=== PATIENT | female | born 1935 | race Caucasian/White ===

== ENCOUNTER → 2016-06-24 | Outpatient (CLI) | payer MEDICARE, BC ==
--- NOTE | 2016-06-24 14:38 | MR ---
MR brain and internal auditory canals with and without contrast HISTORY: Acoustic neuroma Multiplanar multisequence and postcontrast images obtained through the brain with small [id number] images obtained through the internal auditory canals. Postcontrast images obtained following 15 cc M ultiHance IV. Correlation to prior exam dated 21 April 2014 There is no restricted diffusion. Cortical atrophy is again noted. There is a partially empty sella. Corpus callosum, cervical medullary junction, internal auditory canals are stable. Focus of low signa l on T2-weighted sequences along the internal auditory canal which shows contrast enhancement followi ng MultiHance administration is again noted and shows a stable appearance. No significant mass effect . Postop changes in the temporal bone on the right are again seen. Periventricular white matter demye lination is again seen. No hemorrhage or hydrocephalus. Probable meningioma along the tendon undersur face is again seen and shows a stable appearance. IMPRESSION: Stable tumors are noted. No acute brain abnormality.
== END ==
LOC: RADMRIMAIN 09:59
PROVIDERS: ATTEND Otolaryngology
DX: D33.3 Benign neoplasm of cranial nerves (principal)
CPT/HCPCS: 70553; A9577

== ENCOUNTER → 2016-07-26 | Outpatient (CLI) | payer MEDICARE, BC ==
--- NOTE | 2016-07-26 15:00 | US ---
EXAMINATION TYPE: US thyroid st tissue head/neck DATE OF EXAM: 07/26/2016 2:45 PM COMPARISON: 08/10/2016 CLINICAL HISTORY: E04.9 Goiter. Follow up exam GLAND SIZE: Right Lobe: 4.0 x 0.9 x 1.5 cm Overall Parenchyma: homogenous Left Lobe: 3.7 x 0.9 x 1.4 cm Overall Parenchyma: homogeneous Isthmus Thickness: 0.3 cm NODULES RIGHT: # of nodules measured on right: 1 1. 0.2 X 0.2 x 0.2 cm hypoechoic cystic nodule at the lower pole with poorly defined margins; prese nt with microcalcifications. This nodule is wider than tall and shows no intranodular vascularity. Prior size: 0.2 x 0.2 x 0.2 cm LEFT: # of nodules measured on left: 2 1. 0.4 X 0.3 x 0.4 cm hypoechoic cystic nodule at the mid pole with well-defined margins; present wi th microcalcifications. This nodule is taller than wide and shows no intranodular vascularity. Prior size: 0.4 x 0.2 x 0.4 cm 2. 0.3 X 0.2 x 0.3 cm hypoechoic cystic nodule at the upper pole with well-defined margins. This no dule is wider than tall and shows no intranodular vascularity. Prior size: 0.4 x 0.3 x 0.2 cm ISTHMUS: # of nodules measured in the isthmus: 0 Bilateral neck scanned, no evidence of lymphadenopathy. IMPRESSION: 1. Stable multinodular goiter with subcentimeter nodules.
== END | disposition home or self-care (01) ==
LOC: RADUSWWP 14:19
PROVIDERS: ATTEND Family Medicine
DX: E04.2 Nontoxic multinodular goiter (principal)
CPT/HCPCS: 76536

== ENCOUNTER → 2017-02-28 | Outpatient (CLI) | payer MEDICARE, BC ==
--- NOTE | 2017-02-28 15:54 | US ---
EXAMINATION TYPE: US thyroid st tissue head/neck DATE OF EXAM: 02/28/2017 COMPARISON: NONE CLINICAL HISTORY: 82-year-old female E04.9 NONTOXIC GOITER. TECHNIQUE: Multiple sonographic images of the thyroid gland are obtained. FINDINGS: GLAND SIZE: Right Lobe: 4.1 x 1.8 x 1.1 cm Overall Parenchyma: homogenous Left Lobe: 3.6 x1.3 x 1.2 cm Overall Parenchyma: homogeneous Isthmus Thickness: 0.3 cm NODULES RIGHT: # of nodules measured on right: 1 1. 0.2 X 0.1 x 0.2 cm colloid cyst at the midpole. Prior size: 0.2 x 0.2 x 0.2 cm LEFT: # of nodules measured on left: 2 1. 0.4 X 0.3 x 0.4 cm cystic nodule at the mid pole with well-defined margins. This nodule is wide r than tall and shows no intranodular vascularity. Prior size: 0.4 x 0.3 x 0.4 cm 2. 0.3 X 0.2 x 0.3 cm cystic nodule at the upper pole with well-defined margins. This nodule is wid er than tall and shows no intranodular vascularity. Prior size: 0.3 x 0.2 x 0.3 cm ISTHMUS: # of nodules measured in the isthmus: 0 Bilateral neck scanned, no evidence of lymphadenopathy. IMPRESSION: Approximately 3 scattered cysts within the thyroid gland. No suspicious nodules seen.
== END | disposition home or self-care (01) ==
LOC: RADUSWWP 13:38
PROVIDERS: ATTEND Family Medicine
DX: E04.1 Nontoxic single thyroid nodule (principal)
CPT/HCPCS: 76536

== ENCOUNTER → 2017-08-21 | Outpatient (CLI) | payer MEDICARE, BC ==
--- NOTE | 2017-08-21 13:52 | MM ---
Reason for exam: additional evaluation requested from prior study. Last mammogram was performed 17 years and 4 months ago. History: Patient is postmenopausal. Family history of breast cancer in mother at age 88. Took hormonal contraceptives beginning at age 59. Physical Findings: Nurse did not find any significant physical abnormalities on exam. MG 3D Diag Mammo W/Cad CHELITA Bilateral CC and MLO view(s) were taken. Prior study comparison: August 18, 2016, mammogram, performed at [facility]. April 12, 2000, bilateral screening mammogram. The breast tissue is heterogeneously dense. This may lower the sensitivity of mammography. Benign calcifications bilaterally. No suspicious abnormality. These results were verbally communicated with the patient and result sheet given to the patient on 08/21/17. ASSESSMENT: Benign, BI-RAD 2 RECOMMENDATION: Routine screening mammogram of both breasts in 1 year.
== END | disposition home or self-care (01) ==
LOC: RADMAMWWP 12:45
PROVIDERS: ATTEND Family Medicine
DX: R92.8 Other abnormal and inconclusive findings on diagnostic imaging of breast (principal)
CPT/HCPCS: 77066; G0279

== ENCOUNTER → 2017-09-25 | Outpatient (CLI) | payer MEDICARE, BC ==
--- NOTE | 2017-09-25 09:16 | US ---
EXAMINATION TYPE: US thyroid st tissue head/neck DATE OF EXAM: 09/25/2017 COMPARISON: 02/28/2017 and 07/26/2016 CLINICAL HISTORY: E04.1 Nontoxic Single Thyroid Nodule. Follow up thyroid nodules GLAND SIZE: Right Lobe: 4.5 x 1.6 x 1.4 cm Overall Parenchyma: homogenous Left Lobe: 4.3 x 1.1 x 1.2 cm Overall Parenchyma: homogeneous Isthmus Thickness: 0.4 cm NODULES RIGHT: # of nodules measured on right: 1 1. 0.2 X 0.3 x 0.3 cm hypoechoic cystic nodule at the lower pole with well-defined margins. This no dule is wider than tall and shows no intranodular vascularity. Prior size: 0.2 x 0.1 x 0.2 cm LEFT: # of nodules measured on left: 2 1. 0.5 X 0.5 x 0.5 cm hypoechoic cystic nodule at the mid pole with well-defined margins. This nodu le is wider than tall and shows no intranodular vascularity. Prior size: 0.4 x 0.3 x 0.4 cm 2. 0.4 X 0.3 x 0.5 cm hypoechoic cystic nodule at the lower pole with well-defined margins. This nod ule is wider than tall and shows no intranodular vascularity. Prior size: 0.3 x 0.2 x 0.3 cm ISTHMUS: # of nodules measured in the isthmus: 0 Bilateral neck scanned, no evidence of lymphadenopathy. IMPRESSION: Multiple subcentimeter thyroid nodules, overall similar to the prior exams of 02/28/2017 and of 07/27/19 17. No new suspicious nodules.
== END | disposition home or self-care (01) ==
LOC: RADUSWWP 08:30
PROVIDERS: ATTEND Family Medicine
DX: E04.2 Nontoxic multinodular goiter (principal)
CPT/HCPCS: 76536

== ENCOUNTER → 2018-04-02 | Outpatient (CLI) | payer MEDICARE, BC ==
[2018-04-03 09:08] VITALS: BMI 25.0
== END | disposition home or self-care (01) ==
LOC: LABWHC1 08:56
PROVIDERS: ATTEND Family Medicine
DX: Z53.9 Procedure and treatment not carried out, unspecified reason (principal)

== ENCOUNTER → 2018-06-05 | Outpatient (CLI) | payer MEDICARE, BC | END | disposition home or self-care (01) | LOC: LABWHC1 10:46 | PROVIDERS: ATTEND Otolaryngology | DX: D33.3 Benign neoplasm of cranial nerves (principal) | CPT/HCPCS: 36415; 82565; 84520 ==

== ENCOUNTER → 2018-06-06 | Outpatient (CLI) | payer MEDICARE, BC ==
--- NOTE | 2018-06-07 10:21 | US ---
EXAMINATION TYPE: US thyroid st tissue head/neck DATE OF EXAM: 06/06/2018 COMPARISON: US CLINICAL HISTORY: E04.9 GOITER. F/U GLAND SIZE: Right Lobe: 3.7 x 1.1 x 1.3 cm Overall Parenchyma: homogenous Left Lobe: 3.5 x 1.2 x 1.1 cm Overall Parenchyma: Homogenous Isthmus Thickness: 0.35 cm NODULES RIGHT: # of nodules measured on right: 1 1. 0.3 X 0.3 x 0.4 cm hypoechoic cystic nodule at the mid pole with well-defined margins; This nodu le is wider than tall and shows intranodular vascularity. Prior size: 0.2 x 0.3 x 0.3 cm LEFT: # of nodules measured on left: 2 1. 0.5 X 0.4 x 0.4 cm hypoechoic cystic nodule at the mid pole with well-defined margins; This nod ule is wider than tall and shows no intranodular vascularity. Prior size: 0.5 x 0.5 x 0.5 cm 2. 0.4 X 0.3 x 0.4 cm hypoechoic cystic nodule at the lower pole with well-defined margins; This no dule is wider than tall and shows no intranodular vascularity. Prior size: 0.4 x 0.3 x 0.5 cm Bilateral neck scanned, no evidence of lymphadenopathy. Stable sub-centimeter nodules bilaterally. IMPRESSION: 1. Stable subcentimeter bilateral thyroid nodules
== END | disposition home or self-care (01) ==
LOC: RADUSWWP 15:36
PROVIDERS: ATTEND Family Medicine
DX: E04.2 Nontoxic multinodular goiter (principal)
CPT/HCPCS: 76536

== ENCOUNTER → 2018-06-06 | Outpatient (CLI) | payer MEDICARE, BC ==
--- NOTE | 2018-06-06 11:21 | MR ---
EXAMINATION TYPE: MR brain and iac wo/w con DATE OF EXAM: 06/06/2018 COMPARISON: 06/24/2016 and 04/21/2014 HISTORY: Acoustic Nueroma, F/U TECHNIQUE: Multiplanar, multisequence images of the brain and brainstem is performed without and with IV contras t, utilizing 6.5 mL intravenous Gadavist . FINDINGS: Diffusion weighted images demonstrate no evidence of a recent infarct or other diffusion ab normality. There is no extra-axial fluid collection or significant white matter signal abnormality. The ventricular system and cisternal spaces are symmetrically prominent size compatible with age-rel ated volume loss. Midline structures demonstrate normal morphology. There is incidental note made of a partially empty sella turcica. The craniocervical junction appears within normal limits. Old lacunar injury is seen at the level of the inferior right posterior lentiform nucleus and within the left lentiform nuclei m ultifocally. Multiple T2/FLAIR hyperintense foci are scattered within the periventricular and subcort ical white matter, overall moderate burden. This is similar and burden to the prior of 2017. The dura l venous sinuses appear patent. Mild mucosal thickening is seen within the ethmoid sinuses. 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 The remaining visualized sinuses are clear and the globes are intact. Extra-axial mass again at the undersurface of the tentorium cerebelli measures approximately 1.2 cm a nd is isointense on T1 and T2 weighted sequences to loera matter with nearly homogeneous enhancement a gain most compatible with a meningioma. There is a 5 mm intracanalicular enhancing mass, minimally increased from the prior of 2017 where thi s measured approximately 3-4 mm. No abnormal enhancement is seen within the left 7th or 8th cranial n erves or at the left cerebellopontine angle. IMPRESSION: 1. Very mild increase in size of the right intracanalicular acoustic schwannoma now measuring 5 mm an d previously measuring 3 to 4 mm in 2017. 2. 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 3. Similar moderate burden nonspecific white matter change, most commonly on the basis of chronic henry roangiopathy and age-related volume loss.
== END | disposition home or self-care (01) ==
LOC: RADMRIMAIN 07:43
PROVIDERS: ATTEND Otolaryngology
DX: D33.3 Benign neoplasm of cranial nerves (principal); I67.9 Cerebrovascular disease, unspecified
CPT/HCPCS: 70553; A9585

== ENCOUNTER → 2018-08-28 | Outpatient (CLI) | payer MEDICARE, BC ==
--- NOTE | 2018-08-29 10:53 | MM ---
Reason for exam: screening (asymptomatic). Last mammogram was performed 1 year ago. History: Patient is postmenopausal. Family history of breast cancer in mother at age 88. Took hormonal contraceptives beginning at age 59. Physical Findings: A clinical breast exam by your physician is recommended on an annual basis and results should be correlated with mammographic findings. MG 3D Screening Mammo W/Cad Bilateral CC and MLO view(s) were taken. Prior study comparison: August 21, 2017, bilateral MG 3d diag mammo w/cad CHELITA. August 18, 2016, mammogram, performed at [facility]. The breast tissue is heterogeneously dense. This may lower the sensitivity of mammography. Stable benign calcifications. There is no discrete abnormality. No significant changes when compared with prior studies. ASSESSMENT: Benign, BI-RAD 2 RECOMMENDATION: Routine screening mammogram of both breasts in 1 year.
== END ==
LOC: RADMAMWWP 09:18
PROVIDERS: ATTEND Family Medicine
DX: Z12.31 Encounter for screening mammogram for malignant neoplasm of breast (principal)
CPT/HCPCS: 77063; 77067

== ENCOUNTER 2018-10-10 07:39 | Day surgery (SDC) | payer MEDICARE, BC ==
[2018-10-05 14:37] VITALS: BMI 24.6
[~2018-10-10 07:39] MED LIST: LACTATED RINGERS 1,000 ML IV SCH; LIDOCAINE 1% 20 ML VIAL (10MG/ML) FOR IV START INTRADERMA PRN
[2018-10-10 07:52] VITALS: RESP 16; TEMP 96.9
[2018-10-10] MEDS ORDERED: PROPOFOL 10 MG/ML 20 ML VIAL IV ONE (08:26)
[2018-10-10] MEDS ORDERED: LIDOCAINE 1% INJ 10MG/ML (20 ML MDV) ONE (08:26)
--- NOTE | 2018-10-10 08:46 | P.PCN ---
Date of Procedure: 10/10/18 Procedure(s) Performed: BRIEF HISTORY: Patient is a 83-year-old pleasant white female, scheduled for an elective colonoscopy as a part of screening for colorectal neoplasia. She does have family history of colon cancer diagnosed in 2 sisters in their early 70s. PROCEDURE PERFORMED: Colonoscopy with snare polypectomy. PREOPERATIVE DIAGNOSIS: Screening for colon cancer/family history of colon cancer. IV sedation per Anesthesia. PROCEDURE: After informed consent was obtained, the patient, was brought into the endoscopy unit. IV sedation was administered by Anesthesia under continuous monitoring. Digital rectal examination was normal. Initially the Olympus CF-160 flexible video colonoscope was then inserted in the rectum, gradually advanced into the cecum without any difficulty. Careful examination was performed as the scope was gradually being withdrawn. Ileocecal valve and the appendiceal orifice were visualized and appeared normal. Prep was excellent. Mucosa of the cecum, ascending colon, appeared normal. In the proximal ascending a history 5 mm and 7 mm in size both of which were removed by snare polypectomy. Rest of the transverse colon, descending colon, sigmoid colon, and rectum appeared normal. Retroflexion was performed in the rectum and no lesions were seen. The patient tolerated the procedure well. IMPRESSION: 5 mm and 7 mm sessile ascending colon polyps status post polypectomy RECOMMENDATIONS: Findings of this examination were discussed with the patient as well as a family. She was advised to follow with the biopsy results. If the biopsy shows adenoma, she can have a repeat colonoscopy in 3-5 years, based on her overall medical condition..
[2018-10-10 09:05] VITALS: BP 145/68; PULSE 55
== END 2018-10-10 09:45 | disposition home or self-care (01) ==
LOC: ORWHC2ENDO 07:39
PROVIDERS: ATTEND Internal Medicine Gastroenterology
DX: Z12.11 Encounter for screening for malignant neoplasm of colon (principal); D12.2 Benign neoplasm of ascending colon; Z80.0 Family history of malignant neoplasm of digestive organs; I10 Essential (primary) hypertension; G47.33 Obstructive sleep apnea (adult) (pediatric); H91.91 Unspecified hearing loss, right ear; K21.9 Gastro-esophageal reflux disease without esophagitis; M43.22 Fusion of spine, cervical region; K59.00 Constipation, unspecified; Z79.82 Long term (current) use of aspirin; Z79.899 Other long term (current) drug therapy; Z88.0 Allergy status to penicillin
CPT/HCPCS: 88305; 45385; J2001; J2704

== ENCOUNTER → 2018-11-07 | Outpatient (CLI) | payer MEDICARE, BC ==
--- NOTE | 2018-11-07 12:23 | CONS ---
CONSULTATION DATE OF SERVICE: 11/07/2018 An 83-year-old lady who has been evaluated in the Sleep Center for obstructive sleep apnea-hypopnea syndrome. HISTORY OF PRESENT ILLNESS/SLEEP-WAKE EVALUATION: Patient had been diagnosed with mild obstructive sleep apnea in March of 2012, was started on treatment with CPAP. Had some problem with CPAP and started to use oral appliances. Then she started to have some issues related to her teeth related to oral appliance, essentially stopped to use appliances. Presently, her sleep schedule from around 11 p.m. until 6 or 7 a.m. Sometimes she has problems with falling asleep, no TV in bedroom, but patients read in bedroom. He sleeps on the side position with her . According to him, she continued to snore quite loudly and she wakes up from sleep up to 5 times with 3 episodes of nocturia. No history of hypnagogic hallucinations, sleep paralysis or cataplexy. During the day, patient may feel sleepiness. [place] Sleepiness Scale is 9. She may take one nap around 3 - 4 pm, usually feels refreshed after nap, sometimes has dreams during naps. PAST MEDICAL HISTORY: Positive for hypertension, acid reflux, irritable bowel syndrome, , acoustic neuroma treated surgically, balance problems, history of iron-deficiency anemia of unknown cause with iron supplement. PAST SURGICAL HISTORY: Partial hysterectomy, neck surgery and low back surgery, surgery right-sided acoustic neuroma in 1998. MEDICATIONS: Lisinopril, omeprazole, polyethylene glycol which is MiraLAX, , hydrocortisone cream, aspirin, multivitamins, calcium and vitamin D supplement. SOCIAL HISTORY: Negative for smoking. Alcohol consumption occasional. FAMILY HISTORY: Heart problems, arthritis. REVIEW OF SYSTEMS: Multiple awakenings from sleep, tiredness and sleepiness during the day. PHYSICAL EXAM: lady without distress. BP 140/73, HR 56, RR 20, height 5, 2, weight 137, body mass index 26.5, temperature 97.3, oxygen saturation at room air 100%. OROPHARYNX: Extremely low position of soft palate. Mallampati 4. No slightly isometric neck 15 inches in circumference. LUNGS Clear to percussion and to auscultation. Good air exchange. No wheezing or rhonchi. HEART S1, S2 regular. No murmurs, gallops, or rubs. ABDOMEN Soft and nontender. Bowel sounds are present. No organomegaly appreciated. EXTREMITIES No clubbing or cyanosis. FLOORING GRADER Awake, alert, and oriented X3. Cranial nerves 2 to 7 intact. There is no fasciculation or atrophy. noted. No focal deficits observed. IMPRESSION: 1. Snoring, multiple awakenings from sleep, extremely low position of soft palate, episodes of sleepiness. History of obstructive sleep apnea-hypopnea syndrome. 2. Hypertension. 3. Acid reflux. 4. Irritable bowel syndrome. 5. History of . 6. History of acoustic neuroma on the right side, treated surgically in 1998, balance problems. 7. Status post low back surgery. 8. Status post neck surgery. 9. Status post partial hysterectomy. 10.History of iron deficiency anemia on unknown cause, improved with iron supplement. PLAN: 1. Polysomnography for evaluation of patient's breathing during sleep. 2. CPAP/BiPAP titration if sleep study confirms obstructive sleep apnea-hypopnea syndrome. 3. Preferable position during sleep on the side. 4. No driving if patient feels any sleepiness. 5. I will see patient for follow up visit to explain results of testing and following plan. Thank you very much for referring this patient for consultation. Sincerely, Kenean Bates MD, PhD, FAASM Diplomat of [place] [employer] [place] [employer] Tube And Manifold Builder of [facility] [place] [id number] / TOYAN: [id number] /
== END | disposition home or self-care (01) ==
LOC: SLEEP 09:58
PROVIDERS: ATTEND Internal Medicine
DX: G47.33 Obstructive sleep apnea (adult) (pediatric) (principal); I10 Essential (primary) hypertension; K21.9 Gastro-esophageal reflux disease without esophagitis; K58.9 Irritable bowel syndrome, unspecified; Z86.79 Personal history of other diseases of the circulatory system; Z86.018 Personal history of other benign neoplasm; Z90.711 Acquired absence of uterus with remaining cervical stump; Z98.890 Other specified postprocedural states; Z79.82 Long term (current) use of aspirin; Z79.899 Other long term (current) drug therapy
CPT/HCPCS: 99211

== ENCOUNTER → 2019-01-23 | Outpatient (CLI) | payer MEDICARE, BC ==
--- NOTE | 2019-01-23 12:02 | SFUN ---
SLEEP CENTER FOLLOW UP NOTE DATE OF SERVICE: 01/23/2019 An 84-year-old lady who has been followed in the Sleep Center for treatment for obstructive sleep apnea-hypopnea syndrome. Recently, patient had polysomnogram which showed obstructive sleep apnea with apnea- hypopnea index 5.8. I discussed results of the sleep study with patient in detail. Subsequently, she was started on treatment with CPAP and presently able to use CPAP equipment without any problems related to the pressure, mask fitting or humidification. According to her , she sleeps better with the machine. Not any additional sounds and quality of sleep is better. I checked her CPAP unit. CPAP pressure is 5 cm of water. Usage is 27/30 nights and 25/30 nights for more than 4 hours with average usage 6.7 hours per night. Leak is 4 L/minute, which is normal. Apnea-hypopnea index 1.0 for the last month, which is normal wound. Advance Sleepiness Scale today is 11. CURRENT MEDICATIONS: Lisinopril, omeprazole, aspirin, multivitamins, calcium supplement with vitamin D, fish oil, and vitamin D3. PHYSICAL EXAM: Patient in no distress. BP 147/65, HR 58, RR 18, weight 136.4, temperature 97.8, oxygen saturation from 100%. OROPHARYNX: Low position of soft palate, Mallampati 4. Neck Supple, no JVD. Thyroid is not palpable. LUNGS Clear to percussion and to auscultation. Good air exchange. No wheezing or rhonchi. HEART S1, S2 regular. No murmurs, gallops, or rubs. ABDOMEN Soft and nontender. Bowel sounds are present. No organomegaly appreciated. EXTREMITIES No clubbing or cyanosis. INVENTORY SPECIALIST MANAGER Awake, alert, and oriented X3. Cranial nerves 2 to 7 intact. There is no fasciculation or atrophy. noted. No focal deficits observed. IMPRESSION: 1. Obstructive sleep apnea-hypopnea syndrome in mild range. Patient demonstrated good compliance with treatment benefitting from treatment. 2. Hypertension. 3. Acid reflux. 4. Irritable bowel syndrome. 5. History of acoustic neuroma on the right side, treated surgically in 1998, history of balance problems. 6. Status post low back surgery. 7. Status post neck surgery. 8. Status post partial hysterectomy. 9. History of iron-deficiency anemia of unknown cause, improved with iron supplement. PLAN: 1. Patient will continue to use CPAP equipment every night for the whole night. 2. Sleep hygiene with regular time bed for 7-1/2 hours. 3. No driving if feeling sleepiness. 4. I will maintain all necessary prescriptions for CPAP supplies, including nasal pillow mask and heated tube filters. 5. Followup appointment in 1 year or earlier if patient has any problems. Thank you very much for allowing me to participate in the management of your patient. Sincerely, Keenan Bates MD, PhD, FAASM Diplomat of [employer] Credit Card Associate of [facility] [place] MMODL / IJN: [id number] /
== END | disposition home or self-care (01) ==
LOC: SLEEP 10:49
PROVIDERS: ATTEND Internal Medicine
DX: G47.33 Obstructive sleep apnea (adult) (pediatric) (principal); I10 Essential (primary) hypertension; K21.9 Gastro-esophageal reflux disease without esophagitis; K58.9 Irritable bowel syndrome, unspecified; Z86.018 Personal history of other benign neoplasm; Z86.2 Personal history of diseases of the blood and blood-forming organs and certain disorders involving the immune mechanism; Z99.89 Dependence on other enabling machines and devices; Z90.710 Acquired absence of both cervix and uterus; Z98.890 Other specified postprocedural states; Z79.82 Long term (current) use of aspirin; Z79.899 Other long term (current) drug therapy

== ENCOUNTER → 2019-03-05 | Outpatient (CLI) | payer MEDICARE, BC ==
--- NOTE | 2019-03-05 09:41 | US ---
EXAMINATION TYPE: US thyroid st tissue head/neck DATE OF EXAM: 03/05/2019 COMPARISON: US 06/06/18 CLINICAL HISTORY: E04.9 Thyroid nodule. GLAND SIZE: Right Lobe: 3.0 x 1.1 x 1.0 cm Overall Parenchyma: homogenous Left Lobe: 3.7 x 1.3 x 1.1 cm Overall Parenchyma: homogeneous Isthmus Thickness: 0.3 cm NODULES RIGHT: # of nodules measured on right: 1 1. 0.5 X 0.4 x 0.3 cm hypoechoic cystic nodule at the mid/lower pole with well-defined margins; . This nodule is wider than tall and shows no intranodular vascularity. Prior size: 0.3 x 0.3 x 0.4 cm LEFT: # of nodules measured on left: 3 1. 0.5 X 0.4 x 0.4 cm hypoechoic cystic nodule at the mid pole with well-defined margins; present w ith microcalcifications. This nodule is wider than tall and shows no intranodular vascularity. Prior size: 0.5 x 0.4 x 0.4 cm 2. 0.5 X 0.4 x 0.2 cm hypoechoic cystic nodule at the lower pole with well-defined margins; . This nodule is wider than tall and shows no intranodular vascularity. Prior size: 0.4 x 0.3 x 0.4 cm 3. 0.8 X 0.5 x 0.5 cm echogenic solid nodule at the mid pole with poorly defined margins; . This no dule is wider than tall and shows intranodular vascularity. ? within thyroid vs medial to thyroid gla nd. Prior size: Not previously seen. ISTHMUS: # of nodules measured in the isthmus: 0 IMPRESSION: No nodule greater than 1 cm identified. There is an 8mm nodule appears new and is difficult to determ ine if this is medial to the left lobe of the thyroid or within the medial margin of the thyroid. It is too small to characterize. Recommend 6 month follow-up. Remaining nodules demonstrate no significa nt interval change.
== END | disposition home or self-care (01) ==
LOC: RADUSWWP 08:53
PROVIDERS: ATTEND Family Medicine
DX: E04.9 Nontoxic goiter, unspecified (principal)
CPT/HCPCS: 76536

== ENCOUNTER → 2019-10-04 | Outpatient (CLI) | payer MEDICARE ==
--- NOTE | 2019-10-04 07:56 | US ---
EXAMINATION TYPE: US thyroid st tissue head/neck DATE OF EXAM: 10/04/2019 COMPARISON: 03/05/2019 CLINICAL HISTORY: 84-year-old female E04.1 Nontoxic thyroid nodule. Thyroid nodules TECHNIQUE: Multiple sonographic images of the thyroid gland are obtained. FINDINGS: GLAND SIZE: Right Lobe: 3.6 x 1.4 x 1.5 cm Overall Parenchyma: homogenous Left Lobe: 3.8 x 1.2 x 1.2 cm Overall Parenchyma: homogeneous Isthmus Thickness: 0.3 cm NODULES RIGHT: # of nodules measured on right: 1 1. 0.4 X 0.3 x 0.4 cm hypoechoic nodule at the mid/lower pole with well-defined margins. This nodul e is wider than tall and shows no intranodular vascularity. 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 Prior size: 0.5 x 0.4 x 0.3 cm LEFT: # of nodules measured on left: 2 1. 0.5 X 0.6 x 0.4 cm cystic nodule at the mid pole with well-defined margins. Echogenic mural base d nodule. Prior size: 0.5 x 0.4 x 0.4 cm 2. 0.5 X 0.3 x 0.4 cm cyst at the medial lower pole with well-defined margins. Prior size: 0.4 x 0.3 x 0.4 cm ISTHMUS: # of nodules measured in the isthmus: 0 Bilateral neck scanned, no evidence of lymphadenopathy. 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
== END | disposition home or self-care (01) ==
LOC: RADUSWWP 07:12
PROVIDERS: ATTEND Family Medicine
DX: E04.2 Nontoxic multinodular goiter (principal)
CPT/HCPCS: 76536

== ENCOUNTER → 2019-10-10 | Outpatient (CLI) | payer MEDICARE, BC ==
--- NOTE | 2019-10-10 17:33 | SFUN ---
SLEEP CENTER FOLLOW UP NOTE DATE OF SERVICE: 10/10/2019 This patient is an 84-year-old lady who has been followed in Sleep Center for treatment of obstructive sleep apnea-hypopnea syndrome. The patient successfully continues to use her CPAP equipment every night for the whole night. No snoring with the machine. [place] Sleepiness Scale is borderline at 10. I checked her CPAP unit. CPAP pressure is 6 cm of water. Usage is 28/30 nights for more than 4 hours, with average usage 5.8 hours per night. Leak is only 6 L/minute, which is normal. Apnea-hypopnea index is absolutely perfect; only 0.6. MEDICATIONS: Lisinopril, omeprazole, MiraLAX, baby aspirin, multivitamins, fish oil. PHYSICAL EXAMINATION: GENERAL: A pleasant patient in no distress. VITAL SIGNS: BP 126/67, HR 60, RR 16, height 5 feet 2 inches, weight 135, body mass index 24.6, temperature 97.6, oxygen saturation at room air 98%. HEENT: PERRLA, EOMI. Evaluation of oropharynx showed tongue protrudes midline. Low position of soft palate; Mallampati IV. NECK: Supple. No JVD. Thyroid is not palpable. LUNGS: Clear to percussion and to auscultation. Good air exchange. No wheezing or rhonchi. HEART: S1, S2 regular. No murmurs, gallops or rubs. ABDOMEN: Soft and nontender. Bowel sounds are present. No organomegaly. EXTREMITIES: No clubbing or cyanosis. EDITOR MANAGING DIRECTOR: Awake, alert, and oriented X3. Cranial nerves 2 to 7 intact. There is no fasciculation or atrophy. noted. No focal deficits observed. IMPRESSION: 1. Obstructive sleep apnea-hypopnea syndrome. Patient demonstrated great compliance with treatment, benefitting from treatment. 2. Hypertension. 3. Acid reflux. 4. History of irritable bowel syndrome. 5. 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 History of balance problems. 6. Status post low back surgery. 7. Status post neck surgery. 8. Status post partial hysterectomy. PLAN: 1. Patient will continue to use CPAP equipment every night for the whole night. 2. Sleep hygiene with regular time in bed for at least 7-1/2 to 8 hours. 3. No driving if feeling any sleepiness. 4. I will maintain all necessary prescriptions for CPAP supplies, including mask, tube, filters. Thank you very much for allowing me to participate in the management of your patient. Sincerely, Keenan Bates MD, PhD, FAASM Diplomat of [place] [employer] [place] [employer] Multilith Operator of [facility] [place] [id number] / TOYAN: [id number] /
== END | disposition home or self-care (01) ==
LOC: SLEEP 11:04
PROVIDERS: ATTEND Internal Medicine
DX: G47.33 Obstructive sleep apnea (adult) (pediatric) (principal); I10 Essential (primary) hypertension; K21.9 Gastro-esophageal reflux disease without esophagitis; Z87.19 Personal history of other diseases of the digestive system; Z86.018 Personal history of other benign neoplasm; Z98.1 Arthrodesis status; Z90.711 Acquired absence of uterus with remaining cervical stump; Z79.82 Long term (current) use of aspirin; Z79.899 Other long term (current) drug therapy

== ENCOUNTER → 2019-11-21 | Outpatient (CLI) | payer MEDICARE ==
--- NOTE | 2019-11-22 14:01 | MM ---
Reason for exam: screening (asymptomatic). Last mammogram was performed 1 year and 3 months ago. History: Patient is postmenopausal. Family history of breast cancer in mother at age 88. Took hormonal contraceptives beginning at age 59. Physical Findings: A clinical breast exam by your physician is recommended on an annual basis and results should be correlated with mammographic findings. MG 3D Screening Mammo W/Cad Bilateral CC and MLO view(s) were taken. Prior study comparison: August 28, 2018, bilateral MG 3d screening mammo w/cad. August 21, 2017, bilateral MG 3d diag mammo w/cad CHELITA. The breast tissue is heterogeneously dense. This may lower the sensitivity of mammography. Focal asymmetry outer left CC 5.6cm from nipple. This finding is changed when compared with previous exams. ASSESSMENT: Incomplete: need additional imaging evaluation, BI-RAD 0 RECOMMENDATION: Special view mammogram of the left breast. If lesion persists on supplemental views, image directed ultrasound is recommended. [facility] will attempt to contact patient to return for supplemental views and ultrasound if indicated.
== END | disposition home or self-care (01) ==
LOC: RADMAMWWP 08:49
PROVIDERS: ATTEND Family Medicine
DX: Z12.31 Encounter for screening mammogram for malignant neoplasm of breast (principal)
CPT/HCPCS: 77063; 77067

== ENCOUNTER → 2019-11-27 | Outpatient (CLI) | payer MEDICARE ==
--- NOTE | 2019-12-03 11:12 | MM ---
Reason for exam: additional evaluation requested from abnormal screening. Last mammogram was performed less than 1 month ago. History: Patient is postmenopausal. Family history of breast cancer in mother at age 88. Took estrogen beginning at age 59. Physical Findings: Nurse did not find any significant physical abnormalities on exam. MG 3D Work Up W/Cad LT Spot compression CC and LM view(s) were taken of the left breast. Prior study comparison: November 21, 2019, bilateral MG 3d screening mammo w/cad. August 28, 2018, bilateral MG 3d screening mammo w/cad. There is no discrete abnormality including area of concern left outer CC view. These results were verbally communicated with the patient and result sheet given to the patient on 11/27/19. ASSESSMENT: Probably benign, BI-RAD 3 RECOMMENDATION: Follow-up diagnostic mammogram of the left breast in 6 months.
== END | disposition home or self-care (01) ==
LOC: RADMAMWWP 08:16
PROVIDERS: ATTEND Family Medicine
DX: R92.8 Other abnormal and inconclusive findings on diagnostic imaging of breast (principal)
CPT/HCPCS: 77065; G0279; 77061

== ENCOUNTER → 2020-02-04 | Outpatient (CLI) | payer MEDICARE | END | disposition home or self-care (01) | LOC: LABWHC1 12:35 | PROVIDERS: ATTEND Family Medicine | DX: R53.83 Other fatigue (principal) | CPT/HCPCS: U0003; C9803 ==

== ENCOUNTER → 2020-04-30 | Outpatient (CLI) | payer MEDICARE, BC ==
--- NOTE | 2020-04-30 17:15 | SFUN ---
SLEEP CENTER FOLLOW UP NOTE DATE OF SERVICE: 04/30/2020 This is an 85-year-old lady who has been followed in Sleep Center for treatment of obstructive sleep apnea-hypopnea syndrome. Patient continues to use her CPAP equipment every night for the whole night. Sometimes her head gear goes off during the night, although she likes her nasal pillow part. She is using a Brevida mask. [place] Sleepiness Scale today is 10. I checked her CPAP unit, CPAP pressure of 6 cm of water. Usage is 27/30 nights for more than 4 hour and 26/30 nights for more than 4 hours with average usage of 6.7 hours per night which is good compliance. Leak is 8 L/minute which is borderline. Apnea-hypopnea index 0.6, which is totally perfect. MEDICATIONS: Omeprazole 10 mg once a day, lisinopril 10 mg once a day. Aspirin 81 mg once a day, calcium supplement, fish oil supplement. PHYSICAL EXAMINATION: GENERAL: A pleasant patient without any distress. VITAL SIGNS: BP 125/75 , HR 62 , RR 16, height 5' 2 1/2 inches, weight 138.6, BMI 24.8, temperature 98.1, oxygen saturation at room air 100%. HEENT: PERRLA, EOMI: Evaluation of oropharynx showed tongue protrudes midline. Extremely low position of soft palate. Mallampati 4. NECK: Supple, no JVD. Thyroid is not palpable. LUNGS: Clear to percussion and to auscultation. Good air exchange. No wheezing or rhonchi. HEART: S1, S2 regular. No murmurs, gallops, or rubs. ABDOMEN: Soft and nontender. Bowel sounds are present. No organomegaly appreciated. EXTREMITIES: No clubbing or cyanosis. FURNACE CLEANER: Awake, alert, and oriented X3. Cranial nerves 2 to 7 intact. There is no fasciculation or atrophy. noted. No focal deficits observed. IMPRESSION: 1. Obstructive sleep apnea-hypopnea syndrome. Patient demonstrated great compliance with treatment benefitting from treatment. 2. Hypertension. 3. Acid reflux. 4. History of irritable bowel syndrome. 5. 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 6. History of balance problems. 7. Status post low back surgery. 8. Status post neck surgery. 9. Status post partial hysterectomy. PLAN: PLAN 1. Patient will continue to use PAP equipment every night for the whole night. 2. Sleep hygiene with regular time in bed for at least 7-1/2 to 8 hours. 3. Precautions related to driving. No driving if feeling sleepiness. 4. I will maintain all necessary prescription for PAP supplies including mask, tube, filters. 5. Watching weight. 6. No driving if feeling sleepiness. 7. Follow-up visit in 6 months or earlier if patient has any problems. I discussed with the patient the different types of the nasal pillow masks. My recommendation is to try Witt FX because the head gear on that mask is more stable on the head. Thank you very much for allowing me to participate in the management of your patient. Sincerely, Keenan Bates MD, PhD, FAASM Diplomat of [place] [employer] [place] [employer] Biology Manager of [facility] [place] MMODL / TOYAN: [id number] /
== END | disposition home or self-care (01) ==
LOC: SLEEP 10:46
PROVIDERS: ATTEND Internal Medicine
DX: G47.33 Obstructive sleep apnea (adult) (pediatric) (principal); I10 Essential (primary) hypertension; K21.9 Gastro-esophageal reflux disease without esophagitis; Z98.890 Other specified postprocedural states; Z99.89 Dependence on other enabling machines and devices; Z90.712 Acquired absence of cervix with remaining uterus

== ENCOUNTER → 2020-06-05 | Outpatient (CLI) | payer BC, MEDICARE ==
--- NOTE | 2020-06-09 13:48 | MM ---
Reason for exam: follow-up at short interval from prior study. Last mammogram was performed 6 months ago. History: Patient is postmenopausal. Family history of breast cancer in mother at age 88. Took estrogen beginning at age 59. Physical Findings: Nurse did not find any significant physical abnormalities on exam. MG 3D Diag Mammo W/Cad LT CC and MLO view(s) were taken of the left breast. Prior study comparison: November 27, 2019, left breast MG 3d work up w/cad LT. November 21, 2019, bilateral MG 3d screening mammo w/cad. 6mm nodular density upper outer left breast 6cm from nipple. These results were verbally communicated with the patient and result sheet given to the patient on 06/05/20. ASSESSMENT: Incomplete: need additional imaging evaluation, BI-RAD 0 RECOMMENDATION: Ultrasound of the left breast.
--- NOTE | 2020-06-09 13:49 | USB ---
Reason for exam: additional evaluation requested from abnormal screening. History: Patient is postmenopausal. Family history of breast cancer in mother at age 88. Took estrogen beginning at age 59. US Breast Limited LT Left limited breast ultrasound including focal area of concern, retroareolar and axilla demonstrates no cystic or solid lesion seen. These results were verbally communicated with the patient and result sheet given to the patient on 06/05/20. ASSESSMENT: Probably benign, BI-RAD 3 RECOMMENDATION: Follow-up diagnostic mammogram of both breasts in 6 months.
== END | disposition home or self-care (01) ==
LOC: RADMAMWWP 14:58
PROVIDERS: ATTEND Family Medicine
DX: R92.8 Other abnormal and inconclusive findings on diagnostic imaging of breast (principal)
CPT/HCPCS: 77065; 76642; G0279; 77061

== ENCOUNTER → 2020-06-09 | Outpatient (CLI) | payer MEDICARE ==
--- NOTE | 2020-06-09 10:56 | MR ---
EXAMINATION TYPE: MR brain and iac wo/w con DATE OF EXAM: 06/09/2020 COMPARISON: 06/06/2018 HISTORY: S/P Acoustic neuroma 1999, Rt side hearing loss TECHNIQUE: Multiplanar, multisequence images of the brain and brainstem is performed without and with IV contras t, utilizing 6.5 mL intravenous Gadavist . FINDINGS: Diffusion weighted images demonstrate no evidence of a recent infarct or other diffusion ab normality. There is no extra-axial fluid collection or significant white matter signal abnormality. The ventricular system and cisternal spaces are normal in size and appearance. The brain volume is age appropriate. Midline structures demonstrate normal morphology. The craniocervical junction appears within normal limits. Partially empty sella turcica noted. Changes of chronic sinusitis. Moderate generalized degenerative change of the greater central component. Diffuse and focal areas ar e seen of abnormal signal scattered throughout the white matter bilaterally. Abnormal signal involving the basal ganglia suggestive of remote lacunar infarctions. No midline shif t or mass effect. Extra-axial mass again at the undersurface of the tentorium cerebelli measures approximately 1.2 x 1. 5 x 2.9 cm and is isointense on T1 and T2 weighted sequences to loera matter with nearly homogeneous enhancement again most compatible with a meningioma. Retrospectively stable in size. There is a 5 mm intracanalicular enhancing mass, stable from prior exam. No abnormal enhancement is s een within the left 7th or 8th cranial nerves or at the left cerebellopontine angle. IMPRESSION: 1. 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 2. 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 3. Degenerative and nonspecific white matter changes most typical remote ischemia. There is a greater central component and confluent periventricular abnormal signal which could represent transependymal edema. Correlate for normal pressure hydrocephalus.
== END | disposition home or self-care (01) ==
LOC: RADMRIMAIN 08:56
PROVIDERS: ATTEND Otolaryngology
DX: R90.89 Other abnormal findings on diagnostic imaging of central nervous system (principal); D33.3 Benign neoplasm of cranial nerves; G31.9 Degenerative disease of nervous system, unspecified; R90.82 White matter disease, unspecified; I67.82 Cerebral ischemia
CPT/HCPCS: 70553; A9585

== ENCOUNTER → 2020-09-14 | Outpatient (CLI) | payer MEDICARE ==
--- NOTE | 2020-09-14 14:58 | US ---
EXAMINATION TYPE: US thyroid st tissue head/neck DATE OF EXAM: 09/14/2020 COMPARISON: US 612 [id number] CLINICAL HISTORY: E04.9 nontoxic goiter. Thyroid nodules GLAND SIZE: Right Lobe: 4.1 x 1.2 x 1.3 cm Overall Parenchyma: homogenous Left Lobe: 3.9 x 1.2 x 1.2 cm Overall Parenchyma: homogeneous Isthmus Thickness: 0.2 cm NODULES RIGHT: # of nodules measured on right: 2 1. 0.4 X 0.3 x 0.5 cm, lower lateral, cystic or almost completely cystic, anechoic nodule, which is wider than tall, with smooth margins, without echogenic foci. Prior size: 0.4 x 0.3 x 0.4 cm 2. 0.3 X 0.2 x 0.3 cm, upper medial, cystic or almost completely cystic, anechoic nodule, which is wider than tall, with smooth margins, without echogenic foci. Prior size: no previous LEFT: # of nodules measured on left: 2 1. 0.6 X 0.6 x 0.4 cm, mid lateral, cystic or almost completely cystic, anechoic nodule, which is t aller than wide, with smooth margins, without echogenic foci. Prior size: 0.5 x 0.6 x 0.4 cm 2. 0.4 X 0.2 x 0.4 cm, lower medial, cystic or almost completely cystic, anechoic nodule, which is wider than tall, with smooth margins, without echogenic foci. Prior size: 0.5 x 0.3 x 0.4 cm ISTHMUS: # of nodules measured in the isthmus: 0 Bilateral neck scanned, no evidence of lymphadenopathy. IMPRESSION: 1. There is one new colloid cyst in the right lobe which is 3 mm. Multiple bilateral thyroid cysts ar e otherwise relatively stable suggestive of colloid cysts.
== END | disposition home or self-care (01) ==
LOC: RADUSWWP 08:10
PROVIDERS: ATTEND Family Medicine
DX: E04.2 Nontoxic multinodular goiter (principal)
CPT/HCPCS: 76536

== ENCOUNTER → 2020-11-18 | Outpatient (CLI) | payer MEDICARE ==
--- NOTE | 2020-11-18 11:21 | SFUN ---
SLEEP CENTER FOLLOW UP NOTE DATE OF SERVICE: 11/18/2020 85-year-old lady has been followed in Sleep Center for treatment of obstructive sleep apnea-hypopnea syndrome. Patient continued to use her CPAP equipment every night for the whole night. Received all her CPAP supplies in time. [place] Sleepiness Scale today is 8. I checked CPAP unit. Pressure is 6 cm of water. Usage is 30/30 nights, 28/30 nights more than 4 hours, average 6.6 hours per night. Leak is only 6 L/minute. Apnea- hypopnea index 0.9, which is perfect. MEDICATIONS: Omeprazole 10 mg once a day. Lisinopril 10 mg once a day. Aspirin 81 mg once a day, hydrocortisone cream, metronidazole cream and for rosacea. PHYSICAL EXAMINATION: GENERAL: Patient in no distress. BP 120/66, HR 65, RR 14, height 5 feet 10 inches, weight 134.4 pounds, BMI 24.2, temperature 97.1. Oxygen saturation on room air 96%. Oropharynx: Extremely low position of soft palate. Mallampati 4. NECK: Supple, no JVD. Thyroid is not palpable. LUNGS: Clear to percussion and to auscultation. Good air exchange. No wheezing or rhonchi. HEART: S1, S2 regular. No murmurs, gallops, or rubs. ABDOMEN: Soft and nontender. Bowel sounds are present. No organomegaly appreciated. EXTREMITIES: No clubbing or cyanosis. CONSULTING SERVICES MANAGER: Awake, alert, and oriented X3. Cranial nerves 2 to 7 intact. There is no fasciculation or atrophy. noted. No focal deficits observed. IMPRESSION: 1. Obstructive sleep apnea-hypopnea syndrome. Patient demonstrated practically 100% compliance with treatment benefitting from treatment. 2. Hypertension. 3. Acid reflux. 4. History of irritable old bowel syndrome. 5. History of acoustic neuroma on the right site, status post surgical treatment. 6. History of balance problems. 7. Status post low back surgery. 8. Status post neck surgery. 9. Status post partial hysterectomy. PLAN: 1. I paid attention of the patient to be sure that she changed her air filter on a regular basis, the air filter has been checked. 2. Patient will continue to use PAP equipment every night for the whole night. 3. Sleep hygiene with regular time in bed for at least 7-1/2 to 8 hours. 4. Precautions related to driving. No driving if feeling sleepiness. 5. I will maintain all necessary prescription for PAP supplies including mask, tube, filters. 6. Watching weight. 7. Follow-up visit in 6 months or earlier if patient has any problems. I spent with patient and documentation 30 minutes. Thank you very much for allowing me to participate in management of your patient Sincerely, Keenan Bates MD, PhD, FAASM Diplomat of [place] [employer] Sleep Medicine Board of [place] [employer] of [employer] Machine Stone Polisher Apprentice of [facility] [place] MMODL / IJN: [id number] /
== END ==
LOC: SLEEP 10:14
PROVIDERS: ATTEND Internal Medicine
DX: G47.33 Obstructive sleep apnea (adult) (pediatric) (principal); I10 Essential (primary) hypertension; K21.9 Gastro-esophageal reflux disease without esophagitis; Z87.19 Personal history of other diseases of the digestive system; Z86.018 Personal history of other benign neoplasm; Z86.69 Personal history of other diseases of the nervous system and sense organs; Z98.890 Other specified postprocedural states; Z90.711 Acquired absence of uterus with remaining cervical stump; Z79.899 Other long term (current) drug therapy; Z88.1 Allergy status to other antibiotic agents

== ENCOUNTER → 2020-12-07 | Outpatient (CLI) | payer MEDICARE ==
--- NOTE | 2020-12-07 14:13 | MM ---
Reason for exam: follow-up at short interval from prior study. Last mammogram was performed 6 months ago. History: Patient is postmenopausal. Family history of breast cancer in mother at age 88. Took estrogen beginning at age 59. Physical Findings: Nurse did not find any significant physical abnormalities on exam. MG 3D Diag Mammo W/Cad CHELITA Bilateral CC and MLO view(s) were taken. Prior study comparison: June 05, 2020, left breast MG 3d diag mammo w/cad LT. November 27, 2019, left breast MG 3d work up w/cad LT. August 28, 2018, bilateral MG 3d screening mammo w/cad. August 21, 2017, bilateral MG 3d diag mammo w/cad CHELITA. There are scattered fibroglandular densities. No significant new findings when compared with previous films. These results were verbally communicated with the patient and result sheet given to the patient on 12/07/20. ASSESSMENT: Benign, BI-RAD 2 RECOMMENDATION: Routine screening mammogram of both breasts in 1 year.
== END | disposition home or self-care (01) ==
LOC: RADMAMWWP 12:55
PROVIDERS: ATTEND Family Medicine
DX: N64.89 Other specified disorders of breast (principal); Z78.0 Asymptomatic menopausal state; Z80.3 Family history of malignant neoplasm of breast
CPT/HCPCS: 77066; G0279; 77062

== ENCOUNTER → 2021-04-13 | Outpatient (CLI) | payer MEDICARE ==
--- NOTE | 2021-04-13 15:22 | US ---
EXAMINATION TYPE: US thyroid st tissue head/neck DATE OF EXAM: 04/13/2021 COMPARISON: 09/14/2020 CLINICAL HISTORY: E04.9 Nontoxic thyroid goiter. GLAND SIZE: Right Lobe: 3.8x1.2x1.6 cm Overall Parenchyma: homogenous Left Lobe: 4.1x1.2x1.2 cm Overall Parenchyma: homogeneous Isthmus Thickness: 0.3 cm NODULES RIGHT: # of nodules measured on right: 2 1. 0.2 X 0.2 x 0.1 cm, mid mid, cystic or almost completely cystic, anechoic nodule, which is wider than tall, with smooth margins, Colloid echogenic foci. Prior size: 0.3 x 0.3 x 0.2 cm 2. 0.5 X 0.3 x 0.3 cm, lower mid, cystic or almost completely cystic, anechoic nodule, which is wid er than tall, with smooth margins, Colloid echogenic foci. Prior size: 0.4 x 0.5 x 0.3 cm LEFT: # of nodules measured on left: 3 1. 0.6 X 0.5 x 0.5 cm, mid mid, cystic or almost completely cystic, anechoic nodule, which is wider than tall, with smooth margins, Colloid echogenic foci. Prior size: 0.6 x 0.4 x 0.6 cm 2. 0.4 X 0.5 x 0.3 cm, lower medial, cystic or almost completely cystic, anechoic nodule, which is wider than tall, with smooth margins, Colloid echogenic foci. Prior size: 0.4 x 0.4 x 0.3 cm 3. 0.5 X 0.5 x 0.3 cm, lower medial, cystic or almost completely cystic, anechoic nodule, which is wider than tall, with smooth margins, Colloid echogenic foci. Prior size: None ISTHMUS: # of nodules measured in the isthmus: 0 Bilateral neck scanned, no evidence of lymphadenopathy. IMPRESSION: Findings are similar to prior exam. 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
== END | disposition home or self-care (01) ==
LOC: RADUSWWP 14:00
PROVIDERS: ATTEND Family Medicine
DX: E04.9 Nontoxic goiter, unspecified (principal)
CPT/HCPCS: 76536

== ENCOUNTER → 2021-12-08 | Outpatient (CLI) | payer MEDICARE ==
--- NOTE | 2021-12-09 19:11 | MM ---
Reason for Exam: Screening (asymptomatic). Last screening mammogram was performed 12 month(s) ago. Patient History: Menarche at age 13. First Full-Term at age 23. Hysterectomy at age 59. Postmenopausal. Estrogen, from age 59 until age 77. Mother had breast cancer, age 88. Risk Values: Frieda 5 year model risk: 2.9%. NCI Lifetime model risk: 3.3%. Prior Study Comparison: 11/27/2019 Left Diagnostic Mammogram, [facility]. 06/05/2020 Left Diagnostic Mammogram, [facility]. 12/07/2020 Bilateral Diagnostic Mammogram, [facility]. Tissue Density: There are scattered fibroglandular densities. Findings: Analyzed By CAD. Benign vascular calcifications on the right. No significant change from prior exams. Overall Assessment: Benign, BI-RAD 2 Management: Screening Mammogram of both breasts in 1 year. 1. Patient should continue monthly self breast exams. 2. A clinical breast exam by your physician is recommended on an annual basis. 3. This exam should not preclude additional follow-up of suspicious palpable abnormalities. Electronically signed and approved by: Bree Dahl M.D. Radiologist
== END | disposition home or self-care (01) ==
LOC: RADMAMWWP 14:43
PROVIDERS: ATTEND Family Medicine
DX: Z12.31 Encounter for screening mammogram for malignant neoplasm of breast (principal); Z78.0 Asymptomatic menopausal state; Z80.3 Family history of malignant neoplasm of breast
CPT/HCPCS: 77063; 77067

== ENCOUNTER → 2021-12-22 | Outpatient (CLI) | payer MEDICARE ==
--- NOTE | 2021-12-22 10:52 | P.PN ---
Subjective DATE: [] FOLLOW UP VISIT. Patient with obstructive sleep apnea hypopnea syndrome return to sleep center for follow-up visit. Information from previous visit have been reviewed. Patient is using PAP equipment every night for the whole night, getting PAP supplies in time. The patient referred that some nights her mask may go off in the middle of the night. Sometimes in the middle of the night she'll suddenly feel that the pressure is not enough was difficult to breathe. [place] sleepiness scale is 12. I checked PAP unit. PAP unit pressure 6 cm H2O. Usage is 98 % for more then 4 hours, average 7.3 hours per night. Leak is 10 l/m, which is in acceptable range. Apnea Hypopnea Index is 0.8, which is normal. MEDICATIONS:1. Omeprazole 10 mg once a day 2. Losartan 50 mg once a day 3. Aspirin 81 mg once a day 4. Fluticasone nasal spray During physical exam: No chest discomfort, no shortness of breath, no dizziness. GENERAL: A pleasant patient without any distress. VITAL SIGNS: BP 172/77, HR 57, RR 16 , weight 138.8, temperature 96.8, oxygen saturation at room air 99 % . HEENT: PERRLA, EOMI.low position of soft palate, Mallapati 4 . NECK: Supple. No JVD. LUNGS: Clear to percussion and to auscultation. Good air exchange. No wheezing or rhonchi. HEART: S1, S2 regular. ABDOMEN: Soft and nontender.[] EXTREMITIES: No clubbing or cyanosis. PROFESSIONAL DEVELOPMENT INSTRUCTOR: Awake, alert, and oriented x3. No focal deficit. Impressions: 1. Obstructive sleep apnea-hypopnea syndrome. Patient demonstrated great compliance with treatment, benefiting from treatment. 2. Hypertension. 3. 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 4. Acid reflux. 5. History of irritable bowel syndrome. 6. History of balance problems. 7. Status post low back surgery. 8. Status post neck surgery. 9. Status post partial hysterectomy. Plan: 1. Continue using PAP equipment every night for the whole night. I changed regimen of CPAP unit to Auto with the level of pressure 5-8 cm of water. 2. To change air filter at least 1-2 times per month. 3. PAP unit should stay lower then position of the head. 4. Advised patient to remove all remaining water from humidifier canister daily and make it dry after each usage. Refill canister with fresh distilled water before each usage. 5. Sleep hygiene with regular time in bed for at least 8 hours. 6. Precautions related to driving. No driving if feel any sleepiness. 7. I will maintain prescription for PAP supplies including mask, tube, filters. 8. Follow up visit in 6 months or earlier if patient has any problems. 9. Watching weight. 10. Low sodium diet. Thank you very much for allowing me to participate in the management of your patient. Keenan Bates MD, PhD, FAASM. Diplomat of [place] [employer], Sleep Medicine Board by [place] Board [employer] Medicine Gum Machine Operator of [facility] [place]
== END ==
LOC: SLEEP 10:03
PROVIDERS: ATTEND Internal Medicine
DX: G47.33 Obstructive sleep apnea (adult) (pediatric) (principal); I10 Essential (primary) hypertension; K21.9 Gastro-esophageal reflux disease without esophagitis; Z86.018 Personal history of other benign neoplasm; Z87.19 Personal history of other diseases of the digestive system; Z99.89 Dependence on other enabling machines and devices; Z90.710 Acquired absence of both cervix and uterus; Z98.890 Other specified postprocedural states; Z88.1 Allergy status to other antibiotic agents
CPT/HCPCS: 99212

== ENCOUNTER → 2022-05-03 | Outpatient (CLI) | payer MEDICARE ==
--- NOTE | 2022-05-03 11:14 | US ---
EXAMINATION TYPE: US thyroid st tissue head/neck DATE OF EXAM: 05/03/2022 COMPARISON: 04/13/2021 CLINICAL HISTORY: 87-year-old female E04.9 NONTOXIC GOITER, UNSPECIFIED. The thyroid nodules TECHNIQUE: Multiple sonographic images of the thyroid gland are obtained. FINDINGS: GLAND SIZE: Right Lobe: 3.4 x 1.6 x 1.3 cm Overall Parenchyma: homogenous Left Lobe: 3.7 x 1.6 x 1.2 cm Overall Parenchyma: homogeneous Isthmus Thickness: cm NODULES RIGHT: # of nodules measured on right: 1 1. .4 X .3 x .4 cm, lower , mixed cystic and solid, hypoechoic nodule, which is wider than tall, wi th smooth margins, without echogenic foci. Likely a tiny benign colloid cyst. Prior size: .3 x .3 x .5 cm LEFT: # of nodules measured on left: 2 1. .6 X .6 x .5 cm, lower , benign colloid cyst. Prior size: .6 x .5 x .5 cm 2. .4 X .2 x .4 cm, lower , tiny benign colloid cyst. Prior size: .4 x .3 x .4 cm ISTHMUS: # of nodules measured in the isthmus: .3 Bilateral neck scanned, no evidence of lymphadenopathy. IMPRESSION: A few small benign colloid cysts measuring up to 6 mm remain unchanged. No suspicious solid nodule is identified.
== END | disposition home or self-care (01) ==
LOC: RADUSWWP 08:57
PROVIDERS: ATTEND Family Medicine
DX: E04.2 Nontoxic multinodular goiter (principal)
CPT/HCPCS: 76536

== ENCOUNTER → 2022-08-04 | Outpatient (CLI) | payer MEDICARE ==
--- NOTE | 2022-08-04 12:58 | CT ---
EXAMINATION TYPE: CT brain wo con DATE OF EXAM: 08/04/2022 COMPARISON: MRI dated 01/31/2022 HISTORY: Chronic headaches Stat hold and call CT DLP: [address] of the brain was performed. The ventricles, basal cisterns and sulci overlying the cerebral convexities demonstrate mild to moder ate enlargement. There is no evidence for intracranial hemorrhage or sulcal effacement. There is decreased attenuation about the periventricular white matter and deep white matter of both c erebral hemispheres, compatible with chronic small vessel ischemia. Differential diagnosis does inclu de demyelination. No mass effects are seen.No midline shift. Calcified meningioma along the midline tentorium cerebelli measuring 1.4 x 1.2 cm. Osseous calvarium is intact. Right occipital craniotomy changes noted. If symptoms persist consider MRI. IMPRESSION: 1. Age related atrophic and chronic small vessel ischemic change without acute intracranial process s een at this time.
== END | disposition home or self-care (01) ==
LOC: RADCTMAIN 12:26
PROVIDERS: ATTEND Family Medicine
DX: G31.1 Senile degeneration of brain, not elsewhere classified (principal); I67.82 Cerebral ischemia; G89.29 Other chronic pain
CPT/HCPCS: 70450

== ENCOUNTER → 2022-10-26 | Outpatient (CLI) | payer MEDICARE ==
--- NOTE | 2022-10-26 12:33 | P.PN ---
Subjective DATE: 10/26/2022 FOLLOW UP VISIT. Patient with obstructive sleep apnea hypopnea syndrome return to sleep center for follow-up visit. Information from previous visit have been reviewed. Patient is using PAP equipment every night for the whole night, getting PAP supplies in time. The patient does not have significant problems with the mask, PAP unit and humidification. [place] sleepiness scale is slightly increased to 11. I checked information from PAP unit. PAP unit pressure 5-8, average 7.9 cm H2O. Usage is 93 % for more then 4 hours, average 7.5 hours per night. Leak is 11.8 l/m, which is in acceptable range. Apnea Hypopnea Index is 1.3, which is normal. MEDICATIONS:1. Omeprazole 10 mg once a day 2. Losartan 50 mg once a day 3. Aspirin 81 mg once a day 4. Cetirizine 5. [] 6. [] 7. [] 8. [] During physical exam: GENERAL: A pleasant patient without any distress. VITAL SIGNS: BP 142/79, HR 64, RR 16, weight 135.6, temperature 98.1, oxygen saturation at room air 99 % . HEENT: PERRLA, EOMI.low position of soft palate, Mallapati 4 . NECK: Supple. No JVD. LUNGS: Clear to percussion and to auscultation. Good air exchange. No wheezing or rhonchi. HEART: S1, S2 regular. ABDOMEN: Soft and nontender.[] EXTREMITIES: No clubbing or cyanosis. FERRYBOAT OPERATOR HELPER: Awake, alert, and oriented x3. No focal deficit. Impressions: 1. Obstructive sleep apnea-hypopnea syndrome. Patient demonstrated great compliance with treatment, benefiting from treatment. 2. Hypertension. 3. Acid reflux. 4. History of irritable bowel syndrome. 5. 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 6. History of balance problems. 7. Status post total low back surgery. 8. Status post neck surgery. I teach patient how to adjust level of humidity in CPAP unit. Plan: 1. Continue using PAP equipment every night for the whole night. 2. To change air filter at least 1-2 times per month. 3. PAP unit should stay lower then position of the head. 4. Advised patient to remove all remaining water from humidifier canister daily and make it dry after each usage. Refill canister with fresh distilled water before each usage. 5. Sleep hygiene with regular time in bed for at least 8 hours. 6. Precautions related to driving. No driving if feel any sleepiness. 7. I will maintain prescription for PAP supplies including mask, tube, filters. 8. Watching weight. 9.Follow up visit in 6 months or earlier if patient has any problems. Thank you very much for allowing me to participate in the management of your patient. Keenan Bates MD, PhD, FAASM. Diplomat of [place] Board of Sleep Medicine, Sleep Medicine Board by [place] Board of Internal Medicine Novelties Sales Representative of [facility] [place]
== END ==
LOC: 3 N SLEEP 11:42
PROVIDERS: ATTEND Internal Medicine
DX: G47.33 Obstructive sleep apnea (adult) (pediatric) (principal); I10 Essential (primary) hypertension; K21.9 Gastro-esophageal reflux disease without esophagitis; K58.9 Irritable bowel syndrome, unspecified; Z79.899 Other long term (current) drug therapy; Z86.018 Personal history of other benign neoplasm; Z98.890 Other specified postprocedural states; Z99.89 Dependence on other enabling machines and devices; Z88.0 Allergy status to penicillin; Z88.1 Allergy status to other antibiotic agents
CPT/HCPCS: 99212

== ENCOUNTER → 2022-12-13 | Outpatient (CLI) | payer MEDICARE ==
--- NOTE | 2022-12-14 15:44 | MM ---
Reason for Exam: Screening (asymptomatic). Last screening mammogram was performed 12 month(s) ago. Patient History: Menarche at age 13. First Full-Term at age 23. Hysterectomy at age 59. Postmenopausal. Estrogen, from age 59 until age 77. Mother had breast cancer, age 88. Risk Values: Frieda 5 year model risk: 2.7%. NCI Lifetime model risk: 2.7%. Prior Study Comparison: 08/21/2017 Bilateral Diagnostic Mammogram, [facility]. 08/28/2018 Bilateral Screening Mammogram, [facility]. 11/21/2019 Bilateral Screening Mammogram, [facility]. 11/27/2019 Left Diagnostic Mammogram, [facility]. 06/05/2020 Left Diagnostic Mammogram, [facility]. 12/07/2020 Bilateral Diagnostic Mammogram, [facility]. 12/08/2021 Bilateral MG 3D screening mammo w/cad, [facility]. Tissue Density: There are scattered fibroglandular densities. Findings: Analyzed By CAD. Abdomen appears symmetrical and stable. Benign-appearing calcifications are scattered bilaterally. No significant interval changes are evident. No suspicious groups of microcalcifications, spiculated or lobular masses, architectural distortion or other secondary signs of malignancy are mammographically apparent. Overall Assessment: Benign, BI-RAD 2 Management: Screening Mammogram of both breasts in 1 year. A negative mammogram report should not preclude additional follow up of suspicious palpable abnormalities. Patient should continue monthly self breast exam. A clinical breast exam by your physician is recommended on an annual basis and results should be correlated with mammographic findings. Electronically signed and approved by: Eliel Grigsby D.O. Radiologis
== END | disposition home or self-care (01) ==
LOC: RADMAMWWP 07:41
PROVIDERS: ATTEND Family Medicine
DX: Z12.31 Encounter for screening mammogram for malignant neoplasm of breast (principal); Z78.0 Asymptomatic menopausal state; Z80.3 Family history of malignant neoplasm of breast
CPT/HCPCS: 77063; 77067

== ENCOUNTER → 2023-04-13 | Outpatient (CLI) | payer MEDICARE ==
--- NOTE | 2023-04-13 19:57 | US ---
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 Tug Captain notes: Bilateral neck scanned, no evidence of lymphadenopathy. IMPRESSION: Numerous bilateral benign colloid cysts redemonstrated measuring up to 6 mm.
== END | disposition home or self-care (01) ==
LOC: RADUSWWP 08:13
PROVIDERS: ATTEND Family Medicine
DX: E04.1 Nontoxic single thyroid nodule (principal)
CPT/HCPCS: 76536

== ENCOUNTER → 2023-04-26 | Outpatient (CLI) | payer MEDICARE ==
--- NOTE | 2023-04-26 11:21 | P.PN ---
Subjective DATE: 04/26/2023 FOLLOW UP VISIT. Patient with obstructive sleep apnea hypopnea syndrome return to sleep center for follow-up visit. Information from previous visit have been reviewed. Patient is using PAP equipment every night for the whole night, getting PAP supplies in time. The patient does not have significant problems with the mask, PAP unit and humidification. [place] sleepiness scale is 9. I checked information from PAP unit. PAP unit pressure 5-8, average 7.8 cm H2O. Usage is 100 % for more then 4 hours, average 6.7 hours per night. Leak is 14 l/m, which is in acceptable range. Apnea Hypopnea Index is 0.7, which is normal. MEDICATIONS:1. Losartan 50 mg once a day 2. Omeprazole 3. Restasis eyedrops 4. Hydrocortisone cream During physical exam: GENERAL: A pleasant patient without any distress. VITAL SIGNS: BP 154/74, HR 68, RR 16 , weight 135, temperature 97.8, oxygen saturation at room air 100 % . HEENT: PERRLA, EOMI.low position of soft palate, Mallapati 4 . NECK: Supple. No JVD. LUNGS: Clear to percussion and to auscultation. Good air exchange. No wheezing or rhonchi. HEART: S1, S2 regular. ABDOMEN: Soft and nontender.[] EXTREMITIES: No clubbing or cyanosis. ARBOREAL SCIENTIST: Awake, alert, and oriented x3. No focal deficit. Impressions: 1. Obstructive sleep apnea-hypopnea syndrome. Patient demonstrated great compliance with treatment, benefiting from treatment. 2. Hypertension, patient did not take her medication today. 3. Acid reflux. 4. History of irritable bowel syndrome. 5. Status post a recent fall, and physical therapy. 6. 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 7. History of balance problems. 8. Status post neck surgery. 9. Status post low back surgery. Plan: 1. Continue using PAP equipment every night for the whole night. 2. To change air filter at least 1-2 times per month. 3. PAP unit should stay lower then position of the head. 4. Advised patient to remove all remaining water from humidifier canister daily and make it dry after each usage. Refill canister with fresh distilled water before each usage. 5. Sleep hygiene with regular time in bed for at least 8 hours. 6. Precautions related to driving. No driving if feel any sleepiness. 7. I will maintain prescription for PAP supplies including mask, tube, filters. 8. Follow up visit in 6 months or earlier if patient has any problems. 9. Watching weight. Thank you very much for allowing me to participate in the management of your patient. Keenan Bates MD, PhD, FAASM. Diplomat of [place] Board [employer] Sleep Medicine, Sleep Medicine Board by [place] [employer] Medicine Size Mixer of [facility] [place]
== END ==
LOC: 3 N SLEEP 10:45
PROVIDERS: ATTEND Internal Medicine
DX: G47.33 Obstructive sleep apnea (adult) (pediatric) (principal); I10 Essential (primary) hypertension; K21.9 Gastro-esophageal reflux disease without esophagitis; K58.9 Irritable bowel syndrome, unspecified; Z79.899 Other long term (current) drug therapy; Z86.018 Personal history of other benign neoplasm; Z98.890 Other specified postprocedural states; Z99.89 Dependence on other enabling machines and devices; Z91.81 History of falling; Z88.0 Allergy status to penicillin; Z79.82 Long term (current) use of aspirin
CPT/HCPCS: 99212

== ENCOUNTER 2023-05-29 13:04 | Emergency (ER) | payer MEDICARE ==
[2023-05-29 13:12] VITALS: TEMP 98.2
--- NOTE | 2023-05-29 13:36 | ED ---
General Adult HPI - General Chief complaint: Chest Pain Stated complaint: Chest Pain Time Seen by Provider: 05/29/23 13:07 Source: patient, RN notes reviewed, old records reviewed Mode of arrival: ambulatory Limitations: no limitations - History of Present Illness Initial comments: 88-year-old female presents from the hyperbaric chamber for evaluation of chest discomfort. Patient states that during her treatment she had some chest pressure. Patient is currently deaf and history is obtained through her and through written questions. Symptoms are completely resolved at this time. There is no associated dyspnea. No vomiting. No prior history of CAD. Patient is undergoing hyperbaric treatment for hearing loss. - Related Data Home Medications Medication Instructions Recorded Confirmed Aspirin 81 mg PO DAILY 09/24/13 10/10/18 Lisinopril 10 mg PO QAM 09/24/13 10/10/18 Omeprazole 10 mg PO BID 09/24/13 10/10/18 Polyethylene Glycol 3350 527 gm PO DAILY 09/24/13 10/10/18 metroNIDAZOLE [Metronidazole] 1 applicate TOPICAL DAILY 09/24/13 10/10/18 Acetaminophen [Tylenol Arthritis] 650 mg PO DIRECTED PRN 10/05/18 10/10/18 Cetirizine HCl [Zyrtec] 10 mg PO DAILY PRN 10/05/18 10/10/18 Fish Oil/Dha/Epa [Fish Oil 1,200 1 each PO DAILY 10/05/18 10/10/18 mg Fish Oil] Hydrocortisone Cream 1 applic TOPICAL HS 10/05/18 10/10/18 [Hydrocortisone 2.5% Cream] Multivitamins, Thera [Multivitamin 1 tab PO DAILY 10/05/18 10/10/18 (formulary)] Allergies Allergy/AdvReac Type Severity Reaction Status Date / Time amoxicillin [From Augmentin] Allergy Nausea Verified 05/29/23 13:08 clavulanic acid Allergy Nausea Verified 05/29/23 13:08 [From Augmentin] Review of Systems ROS Statement: Those systems with pertinent positive or pertinent negative responses have been documented in the HPI. ROS Other: All systems not noted in ROS Statement are negative. Past Medical History Past Medical History: GERD/Reflux, Hypertension, Sleep Apnea/CPAP/BIPAP Additional Past Medical History / Comment(s): using device for sleep apnea, constipation, rosacea, deaf rt ear History of Any Multi-Drug Resistant Organisms: None Reported Past Surgical History: Back Surgery, Ear Surgery, Hysterectomy Additional Past Surgical History / Comment(s): cervical fusion, lower back surgery for sciatic nerve, cheli cataracts, rt ear acustic neuroma Past Anesthesia/Blood Transfusion Reactions: Motion Sickness Past Psychological History: No Psychological Hx Reported Smoking Status: Never smoker Past Alcohol Use History: Occasional Past Drug Use History: None Reported - Past Family History Mother Family Medical History: Cancer General Exam Limitations: no limitations General appearance: alert, in no apparent distress Head exam: Present: atraumatic, normocephalic Eye exam: Present: normal appearance, PERRL ENT exam: Present: normal exam Neck exam: Present: normal inspection. Absent: tenderness, meningismus Respiratory exam: Present: normal lung sounds bilaterally. Absent: respiratory distress Cardiovascular Exam: Present: regular rate, normal rhythm GI/Abdominal exam: Present: soft. Absent: distended, tenderness, guarding Extremities exam: Present: normal inspection, normal capillary refill Neurological exam: Present: alert, oriented X3, CN II-XII intact. Absent: motor sensory deficit Psychiatric exam: Present: normal affect, normal mood Skin exam: Present: warm, dry, intact. Absent: cyanosis, diaphoretic Course Vital Signs 05/29/23 13:06 Temperature 98.2 F Pulse Rate 58 L Respiratory 20 Rate Blood Pressure 140/71 O2 Sat by Pulse 99 Oximetry Medical Decision Making - Medical Decision Making Was pt. sent in by a medical professional or institution (DONNA Granado, IUSS MASTER ANALYST, urgent care, hospital, or jail...) When possible be specific @ -No Did you speak to anyone other than the patient for history (EMS, parent, family, police, friend...)? What history was obtained from this source @ -Patient's Did you review nursing and triage notes (agree or disagree)? Why? @ -I reviewed and agree with nursing and triage notes Were old charts reviewed (outside hosp., previous admission, EMS record, old EKG, old radiological studies, urgent care reports/EKG's, jail records)? Report findings @ -No old charts were reviewed Differential Diagnosis (chest pain, altered mental status, abdominal pain women, abdominal pain men, vaginal bleeding, weakness, fever, dyspnea, syncope, h eadache, dizziness, GI bleed, back pain, seizure, CVA, palpatations, mental health, musculoskeletal)? @Differential Chest Pain: Stable Angina, Unstable Angina, STEMI, NSTEMI Aortic Dissection, Pneumothorax, Musculoskeletal, Esophageal Spasm GERD, Cholecystitis, Pancreatitis, Zoster, this is not meant to be an all-inclusive list. EKG interpreted by me (3pts min.). @ -EKG: Sinus bradycardia rate of 52, ND interval 173, QRS duration 89, QTc [address] segment elevation. X-rays interpreted by me (1pt min.). @ -[Chest x-ray negative for acute cardiopulmonary findings CT interpreted by me (1pt min.). @ -None done U/S interpreted by me (1pt. min.). @ -None done What testing was considered but not performed or refused? (CT, X-rays, U/S, labs)? Why? @ -None What meds were considered but not given or refused? Why? @ -None Did you discuss the management of the patient with other professionals (professionals i.e. , PA, IUSS MASTER ANALYST, lab, RT, psych nurse, social group worker, reroller hand, teacher, aeronautical engineering officer, therapeutic case manager)? Give summary @ -No Was smoking cessation discussed for >3mins.? @ -No Was critical care preformed (if so, how long)? @ -No Were there social determinants of health that impacted care today? How? (Homelessness, low income, unemployed, alcoholism, drug addiction, transportation, low edu. Level, literacy, decrease access to med. care, intermediate, rehab)? @ -No Was there de-escalation of care discussed even if they declined (Discuss DNR or withdrawal of care, Hospice)? DNR status @ -No What co-morbidities impacted this encounter? (DM, HTN, Smoking, COPD, CAD, Cancer, CVA, ARF, Chemo, Hep., AIDS, mental health diagnosis, sleep apnea, morbid obesity)? @ -None Was patient admitted / discharged? Hospital course, mention meds given and route, prescriptions, significant lab abnormalities, going to OR and other pertinent info. @ -88-year-old female presenting with an episode of chest discomfort while undergoing hyperbaric treatment. Symptoms resolved at the time my evaluation. Patient is well-appearing she is in sinus rhythm without definitive signs of ischemia on EKG. Chest x-ray is clear normal no pneumothorax, no focal pneumonia or acute findings. She has normal CBC, normal CMP, negative troponin. Patient stable for discharge with outpatient primary care follow-up. Undiagnosed new problem with uncertain prognosis? @ -No Drug Therapy requiring intensive monitoring for toxicity (Heparin, Nitro, Insulin, Cardizem)? @ -No Were any procedures done? @ -No Diagnosis/symptom? @Chest pain Acute, or Chronic, or Acute on Chronic? @ -[Acute Uncomplicated (without systemic symptoms) or Complicated (systemic symptoms)? @ -Complicated Side effects of treatment? @ -No Exacerbation, Progression, or Severe Exacerbation? @ -No Poses a threat to life or bodily function? How? (Chest pain, USA, SC, pneumonia, PE, COPD, DKA, ARF, appy, cholecystitis, CVA, Diverticulitis, Homicidal, Suicidal, threat to staff... and all critical care pts) @ -Low risk at this time - Lab Data Result diagrams: 05/29/23 13:46 05/29/23 13:46 Lab Results 05/29/23 05/29/23 05/29/23 Range/Units 13:46 13:46 13:46 WBC 6.1 (3.8-10.6) k/uL RBC 4.30 (3.80-5.40) m/uL Hgb 13.5 (11.4-16.0) gm/dL Hct 38.6 (34.0-46.0) % MCV 89.8 (80.0-100.0) fL MCH 31.4 (25.0-35.0) pg MCHC 35.0 (31.0-37.0) g/dL RDW 13.7 (11.5-15.5) % Plt Count 254 (150-450) k/uL MPV 6.6 Neutrophils % 77 % Lymphocytes % 9 % Monocytes % 5 % Eosinophils % 8 % Basophils % 1 % Neutrophils # 4.7 (1.3-7.7) k/uL Lymphocytes # 0.5 L (1.0-4.8) k/uL Monocytes # 0.3 (0-1.0) k/uL Eosinophils # 0.5 (0-0.7) k/uL Basophils # 0.0 (0-0.2) k/uL PT 10.1 (10.0-12.5) sec INR 0.9 (<1.2) APTT 22.4 (22.0-30.0) sec Sodium 130 L (137-145) mmol/L Potassium 4.1 (3.5-5.1) mmol/L Chloride 100 (98-107) mmol/L Carbon Dioxide 24 (22-30) mmol/L Anion Gap 6 mmol/L BUN 17 (7-17) mg/dL Creatinine 0.64 (0.52-1.04) mg/dL Est GFR (CKD-EPI)AfAm >90 (>60 ml/min/1.73 sqM) Est GFR (CKD-EPI)NonAf 81 (>60 ml/min/1.73 sqM) Glucose 99 (74-99) mg/dL Calcium 9.3 (8.4-10.2) mg/dL Magnesium 2.0 (1.6-2.3) mg/dL Total Bilirubin 0.4 (0.2-1.3) mg/dL AST 21 (14-36) U/L ALT 21 (4-34) U/L Alkaline Phosphatase 95 (38-126) U/L Troponin I (0.000-0.034) ng/mL Total Protein 5.9 L (6.3-8.2) g/dL Albumin 3.8 (3.5-5.0) g/dL 05/29/23 Range/Units 13:46 WBC (3.8-10.6) k/uL RBC (3.80-5.40) m/uL Hgb (11.4-16.0) gm/dL Hct (34.0-46.0) % MCV (80.0-100.0) fL MCH (25.0-35.0) pg MCHC (31.0-37.0) g/dL RDW (11.5-15.5) % Plt Count (150-450) k/uL MPV Neutrophils % % Lymphocytes % % Monocytes % % Eosinophils % % Basophils % % Neutrophils # (1.3-7.7) k/uL Lymphocytes # (1.0-4.8) k/uL Monocytes # (0-1.0) k/uL Eosinophils # (0-0.7) k/uL Basophils # (0-0.2) k/uL PT (10.0-12.5) sec INR (<1.2) APTT (22.0-30.0) sec Sodium (137-145) mmol/L Potassium (3.5-5.1) mmol/L Chloride (98-107) mmol/L Carbon Dioxide (22-30) mmol/L Anion Gap mmol/L BUN (7-17) mg/dL Creatinine (0.52-1.04) mg/dL Est GFR (CKD-EPI)AfAm (>60 ml/min/1.73 sqM) Est GFR (CKD-EPI)NonAf (>60 ml/min/1.73 sqM) Glucose (74-99) mg/dL Calcium (8.4-10.2) mg/dL Magnesium (1.6-2.3) mg/dL Total Bilirubin (0.2-1.3) mg/dL AST (14-36) U/L ALT (4-34) U/L Alkaline Phosphatase (38-126) U/L Troponin I <0.012 (0.000-0.034) ng/mL Total Protein (6.3-8.2) g/dL Albumin (3.5-5.0) g/dL Disposition Clinical Impression: Chest pain Disposition: HOME SELF-CARE Instructions (If sedation given, give patient instructions): Chest Pain (ED) Is patient prescribed a controlled substance at d/c from ED?: No Referrals: Eliel Hook DO [Primary Care Provider] - 1-2 days Time of Disposition: 14:43
[2023-05-29 13:58] LABS: Basophils % (A) 1 %; Eosinophils # (A) 0.5 k/uL (0-0.7); Eosinophils % (A) 8 %; HCT 38.6 % (34.0-46.0); HGB 13.5 gm/dL (11.4-16.0); Lymphocytes # (A) 0.5 k/uL (1.0-4.8); Lymphocytes % (A) 9 %; MCH 31.4 pg (25.0-35.0); MCV 89.8 fL (80.0-100.0); Mean Platelet Volume 6.6; Monocytes # (A) 0.3 k/uL (0-1.0); Monocytes % (A) 5 %; Neutrophils # (A) 4.7 k/uL (1.3-7.7); Neutrophils % (A) 77 %; Platelet Count 254 k/uL (150-450); RDW 13.7 % (11.5-15.5); WBC 6.1 k/uL (3.8-10.6)
[2023-05-29 14:06] LABS: INR 0.9 (<1.2); Partial Thromboplastin Time 22.4 sec (22.0-30.0); Prothrombin Time 10.1 sec (10.0-12.5)
[2023-05-29 14:08] LABS: ALT 21 U/L (4-34); AST 21 U/L (14-36); African American GFR (CKD) >90 (>60 ml/min/1.73 sqM); Albumin 3.8 g/dL (3.5-5.0); Alkaline Phosphatase 95 U/L (38-126); Anion Gap 6 mmol/L; Blood Urea Nitrogen 17 mg/dL (7-17); Calcium 9.3 mg/dL (8.4-10.2); Carbon Dioxide 24 mmol/L (22-30); Chloride 100 mmol/L (98-107); Glucose 99 mg/dL (74-99); Non-African American GFR(CKD) 81 (>60 ml/min/1.73 sqM); Potassium 4.1 mmol/L (3.5-5.1); Sodium 130 mmol/L (137-145); Total Bilirubin 0.4 mg/dL (0.2-1.3); Total Protein 5.9 g/dL (6.3-8.2)
--- NOTE | 2023-05-29 14:17 | XR ---
EXAMINATION TYPE: XR chest 2V DATE OF EXAM: 05/29/2023 2:08 PM CLINICAL INDICATION:Female, 88 years old with history of Chest Pain; COMPARISON: Chest radiographs from 07/15/2012 TECHNIQUE: XR chest 2V Frontal and lateral views of the chest. FINDINGS: Lungs/Pleura: There is no evidence of pleural effusion, focal consolidation, or pneumothorax. Pulmonary vascularity: Unremarkable. Heart/mediastinum: Cardiomediastinal silhouette is unremarkable. Musculoskeletal: No acute osseous pathology. There is fixation hardware in the lower cervical spine. Other findings: None IMPRESSION: No acute cardiopulmonary disease/process.
[2023-05-29 15:09] VITALS: BP 132/86; PULSE 60; RESP 18
== END 2023-05-29 15:17 | disposition home or self-care (01) ==
LOC: EC 13:04
DX: R07.89 Other chest pain (principal); R00.1 Bradycardia, unspecified; I10 Essential (primary) hypertension; K21.9 Gastro-esophageal reflux disease without esophagitis; G47.30 Sleep apnea, unspecified; Z79.82 Long term (current) use of aspirin; Z79.899 Other long term (current) drug therapy; Z88.1 Allergy status to other antibiotic agents; Z88.8 Allergy status to other drugs, medicaments and biological substances
CPT/HCPCS: 36415; 71046; 80053; 83735; 84484; 85025; 85610; 85730; 93005; 99285

== ENCOUNTER → 2023-06-17 | Outpatient (CLI) | payer MEDICARE ==
--- NOTE | 2023-06-17 17:57 | MR ---
EXAMINATION TYPE: MR brain and iac wo/w con DATE OF EXAM: 06/17/2023 10:43 AM CLINICAL INDICATION:Female, 88 years old with history of D33.3 BENIGN NEOPLASM OF CRANIAL NERVES; PHH , Acoustic Neuroma, Hx of Surgery for neuroma COMPARISON: 01/31/2022 TECHNIQUE: Multi planar, multi sequence imaging was performed through the brain. Specialized thin s equences were obtained through the internal auditory canals. Pre-and post gadolinium sequences were obtained. MR contrast: IV Contrast: 6.5 cc Gadavist FINDINGS: Generalized atrophy changes with proportional dilation of the ventricular system. The loera-white antonino ctions, ventricular system, and cisterns appear unremarkable. Scattered foci of high T2 signal inten sity are seen within the periventricular white matter. Midline structures show no abnormality. Diffus ion-weighted imaging shows no evidence of restricted diffusion. The susceptibility weighted images do not reveal any evidence for micro-hemorrhage. The bone marrow signal is within normal limits. Scattered high T2 signal within the right mastoid air cells. Paranasal sinuses and mastoid air cells: Mild scattered paranasal sinus disease. Visualized orbits: Orbital contents are intact. After administration of gadolinium, no abnormal enhancement is seen. Similar right internal auditory canal 6 mm enhancing mass. The 7th cranial nerves, 8 cranial nerves, and cerebellar pontine angles appear unremarkable. After the administration gadolinium, no abnormal enhancement is seen within the left internal auditory canals. At the left cerebellopontine angle is h igh T1 postcontrast signal which is somewhat ill-defined and is not significantly changed from 202 r adiology. Her and other sequences and no definitive masses visualized. Vascular loop: None. IMPRESSION: 1. Stable right internal auditory canal enhancing acoustic neuroma measuring up to 6 mm. 2. No evidence of other masses nor acute/subacute CVA. 3. No evidence of left internal auditory canal abnormality. 4. Nonspecific white matter changes, likely secondary to small vessel ischemic disease.
== END | disposition home or self-care (01) ==
LOC: RADMRIMAIN 09:40
PROVIDERS: ATTEND Otolaryngology Otology & Neurotology
DX: D33.3 Benign neoplasm of cranial nerves (principal); G93.89 Other specified disorders of brain
CPT/HCPCS: 70553; A9585

== ENCOUNTER → 2023-11-14 | Day surgery (SDC) | payer MEDICARE ==
[2023-11-09 15:35] VITALS: BMI 23.8
[~2023-11-14] MED LIST changes: -LACTATED RINGERS 1,000 ML IV SCH; -LIDOCAINE 1% 20 ML VIAL (10MG/ML) FOR IV START INTRADERMA PRN; +LIDOCAINE 1% INJ 10MG/ML (20 ML MDV) ONE; +PROPOFOL 10 MG/ML 20 ML VIAL IV ONE
[2023-11-14 10:54] VITALS: RESP 16; TEMP 97.2
[2023-11-14] MEDS: IV FLUID CONTINUATION 1,000 ML IV ONE (11:03)
[2023-11-14] MEDS: LACTATED RINGERS 1,000 ML IV SCH (11:04)
--- NOTE | 2023-11-14 12:03 | P.PCN ---
Date of Procedure: 11/14/23 Procedure(s) Performed: BRIEF HISTORY: Patient is a 88-year-old, pleasant, white female scheduled for an upper endoscopy as a part evaluation of GERD/atypical chest pain since May of this year. She is presently on omeprazole 20 mg daily and Pepcid 20 mg at bedtime with some improvement in his symptoms. PROCEDURE PERFORMED: Esophagogastroduodenoscopy with biopsy. PREOPERATIVE DIAGNOSIS: GERD/chest pain. IV sedation per anesthesia. PROCEDURE: After informed consent was obtained, the patient was brought into the endoscopy unit. IV sedation was administered by Anesthesia under continuous monitoring. Initially the Olympus GIF-140 video endoscope was inserted into the mouth. Esophagus intubated without any difficulty. It was gradually advanced into the stomach and duodenum and carefully examined. The bulb and the second part of the duodenum appeared normal. The scope at this time was withdrawn to the stomach, adequately insufflated with air, and upon careful examination, mucosa of the antrum, and mild gastritis and biopsies were done from this area. Mucosa of the body, cardia and the fundus appeared normal. The scope was then withdrawn into the esophagus. Small hiatal hernia noted. The GE junction was located at 39 cm from the incisors. The esophagus appeared normal. There were no erosions or ulcerations seen and the patient tolerated the procedure well. IMPRESSION: 1. Small hiatal hernia with no evidence of esophagitis or Mullins's esophagus. 2. Mild antral gastritis. RECOMMENDATIONS: The findings of this examination were discussed with the patient as well as her family. She was advised to follow-up with the biopsy results. Continue with omeprazole 20 mg daily as well as Pepcid at bedtime and follow antireflux measures..
[2023-11-14 12:23] VITALS: BP 166/75; PULSE 63
== END ==
LOC: ORWHC2ENDO 10:14
PROVIDERS: ATTEND Internal Medicine Gastroenterology
DX: K29.50 Unspecified chronic gastritis without bleeding (principal); K44.9 Diaphragmatic hernia without obstruction or gangrene; I10 Essential (primary) hypertension; G47.33 Obstructive sleep apnea (adult) (pediatric); L71.9 Rosacea, unspecified; H91.91 Unspecified hearing loss, right ear; M54.59 Other low back pain; K59.00 Constipation, unspecified; Z88.0 Allergy status to penicillin; Z88.1 Allergy status to other antibiotic agents; Z79.82 Long term (current) use of aspirin; Z79.899 Other long term (current) drug therapy; Z99.89 Dependence on other enabling machines and devices; Z79.621 Long term (current) use of calcineurin inhibitor
CPT/HCPCS: 88305; 88342; 43239; J2001; J2704

== ENCOUNTER → 2023-12-13 | Outpatient (CLI) | payer MEDICARE ==
--- NOTE | 2024-01-01 10:19 | MM ---
Reason for Exam: Screening (asymptomatic). Last screening mammogram was performed 12 month(s) ago. Patient History: Menarche at age 13. First Full-Term at age 23. Hysterectomy at age 59. Postmenopausal. Estrogen, from age 59 until age 77. Mother had breast cancer, age 88. Prior Study Comparison: 12/07/2020 Bilateral Diagnostic Mammogram, [facility]. 12/08/2021 Bilateral MG 3D screening mammo w/cad, [facility]. 12/13/2022 Bilateral MG 3D screening mammo w/cad, [facility]. Tissue Density: The breasts are heterogeneously dense, which may obscure small masses. Findings: Analyzed By CAD. There is no suspicious group of microcalcifications or new suspicious mass in either breast. Overall Assessment: Benign, BI-RAD 2 Management: Screening Mammogram of both breasts in 1 year. . Patient should continue monthly self-breast exams. A clinical breast exam by your physician is recommended on an annual basis. This exam should not preclude additional follow-up of suspicious palpable abnormalities. Note on Frieda scores and lifetime risk: 1. A Frieda score greater than 3% is considered moderate risk. If this is the case, consider specialist referral to assess eligibility for a risk reducing agent. 2. If overall lifetime risk for the development of breast cancer is 20% or higher, the patient may qualify for future screening with alternating mammogram and breast MRI. Electronically signed and approved by: Taz Nieto DO
== END | disposition home or self-care (01) ==
LOC: RADMAMWWP 18:07
PROVIDERS: ATTEND Family Medicine
DX: Z12.31 Encounter for screening mammogram for malignant neoplasm of breast (principal); Z78.0 Asymptomatic menopausal state; Z80.3 Family history of malignant neoplasm of breast
CPT/HCPCS: 77063; 77067

== ENCOUNTER → 2023-12-13 | Outpatient (CLI) | payer MEDICARE | LOC: 3 N SLEEP 10:14 | PROVIDERS: ATTEND Internal Medicine | CPT/HCPCS: 99212 ==

== ENCOUNTER → 2024-01-12 | Outpatient (CLI) | payer MEDICARE ==
[2024-01-12 14:57] LABS: Basophils # (A) 0.05 X 10*3/uL (0.00-0.10); Basophils % (A) 1.6 %; Eosinophils # (A) 0.14 X 10*3/uL (0.04-0.35); Eosinophils % (A) 4.6 %; HCT 36.5 % (37.2-46.3); HGB 12.4 g/dL (12.0-15.0); Lymphocytes # (A) 0.91 X 10*3/uL (0.90-5.00); Lymphocytes % (A) 29.9 %; MCH 31.1 pg (27.0-32.0); MCV 91.5 FL (80.0-97.0); Mean Platelet Volume 8.9 FL (9.5-12.2); Monocytes # (A) 0.28 X 10*3/uL (0.20-1.00); Monocytes % (A) 9.2 %; NRBC Per 100 WBC 0 X 10*3/uL (0.00-0.01); Neutrophils # (A) 1.65 X 10*3/uL (1.80-7.70); Neutrophils % (A) 54.4 %; Platelet Count 279 X 10*3/uL (140-440); RBC 3.99 X 10*6/uL (4.10-5.20); WBC 3.04 X 10*3/uL (4.50-10.00)
[2024-01-12 15:36] LABS: ALT 22 U/L (8-44); AST 17 U/L (13-35); Blood Urea Nitrogen 17.6 mg/dL (9.0-27.0); C Reactive Protein <0.30 mg/dL (0.00-0.80); Calcium 9.8 mg/dL (8.7-10.3); Carbon Dioxide 23.8 mmol/L (21.6-31.8); Chloride 103 mmol/L (96-109); Glucose 96 mg/dL (70-110); Magnesium 2.1 mg/dL (1.5-2.4); Phosphorus 3.6 mg/dL (2.4-5.1); Potassium 3.9 mmol/L (3.5-5.5); Sodium 137 mmol/L (135-145); T4, Free (Free Thyroxine) 1.19 ng/dL (0.80-1.80)
[2024-01-12 16:17] LABS: Erythrocyte Sedimentation Rate 3 mm/Hr (0-30)
== END | disposition home or self-care (01) ==
LOC: LABWHC1 08:43
PROVIDERS: ATTEND Psychiatry & Neurology Neurology
DX: R41.3 Other amnesia (principal)
CPT/HCPCS: 36415; 80051; 82310; 82565; 82607; 82746; 82947; 83036; 83735; 83921; 84100; 84439; 84443; 84450; 84460; 84520; 85025; 85652; 86038; 86140; 86780

== ENCOUNTER → 2024-07-18 | Outpatient (CLI) | payer MEDICARE ==
[2024-07-18 15:22] VITALS: BP 142/78; PULSE 61; RESP 18; TEMP 97.7
--- NOTE | 2024-07-18 15:41 | P.PROGSL ---
Subjective DATE: 07/18/2024 FOLLOW UP VISIT. Patient with obstructive sleep apnea hypopnea syndrome return to sleep center for follow-up visit. Information from previous visit have been reviewed. Patient is using PAP equipment every night for the whole night, getting PAP supplies in time. The patient does not have significant problems with the mask, PAP unit and humidification. [place] sleepiness scale is slightly increased to 13. I checked information from PAP unit. PAP unit pressure 5-8, average 7.9 cm H2O. Usage is 98% for more then 4 hours, average 6.9 hours per night. Leak is 22 l/m, which is in acceptable range. Apnea Hypopnea Index is 0.7, which is normal. MEDICATIONS have been reviewed, please see below. During physical exam: GENERAL: A pleasant patient without any distress. VITAL SIGNS: Please see below, weight is 124.6 lbs. HEENT: PERRLA, EOMI.low position of soft palate, Mallapati 3. NECK: Supple. No JVD. LUNGS: Clear to percussion and to auscultation. Good air exchange. No wheezing or rhonchi. HEART: S1, S2 regular. ABDOMEN: Soft and nontender.[] EXTREMITIES: No clubbing or cyanosis. SUPPORT WORKER: Awake, alert, and oriented x3. No focal deficit. Impressions: 1. Obstructive sleep apnea-hypopnea syndrome. Patient demonstrated great compliance with treatment, benefiting from treatment. 2. Acid reflux. 3. Hypertension. 4. Allergy. Plan: 1. Continue using PAP equipment every night for the whole night. 2. Sleep hygiene with regular time in bed for at least 7.5-8 hours 3. PAP unit should stay lower then position of the head. 4. Advised patient to remove all remaining water from humidifier canister daily and make it dry after each usage. Refill canister with fresh distilled water before each usage. 5. Watching weight. 6. Precautions related to driving. No driving if feel any sleepiness. 7. I will maintain prescription for PAP supplies including mask, tube, filters. 8. Follow up visit in 8 months or earlier if patient has any problems. Thank you very much for allowing me to participate in the management of your patient. Keenan Bates MD, PhD, FAASM. Diplomat of [place] [employer], Sleep Medicine Board by [place] [employer] Weight Control Lecturer of [facility] [place] Objective - Vital Signs Vital Signs: Vital Signs Temp 97.7 F 07/18/24 15:20 Pulse 61 07/18/24 15:20 Resp 18 07/18/24 15:20 BP 142/78 07/18/24 15:20 Pulse Ox 96 07/18/24 15:20 FiO2 Intake & Output 07/17/24 07/18/24 07/18/24 18:59 06:59 18:59 Weight 56.416 kg Home Medications: Home Medications Medication Instructions Recorded Confirmed Type Aspirin 81 mg PO DAILY 09/24/13 07/18/24 History Omeprazole 10 mg PO BID 09/24/13 07/18/24 History Polyethylene Glycol 3350 527 gm PO DAILY 09/24/13 11/14/23 History Acetaminophen [Tylenol Arthritis] 650 mg PO DIRECTED PRN 10/05/18 11/14/23 History Fish Oil/Dha/Epa [Fish Oil 1,200 1 each PO DAILY 10/05/18 07/18/24 History mg Fish Oil] Multivitamins, Thera [Multivitamin 1 tab PO DAILY 10/05/18 07/18/24 History (formulary)] Calcium Carbonate/Vitamin D3 1 tab PO DAILY 11/09/23 11/14/23 History [Calcium 600-Vit D3 62.5 Mcg (2,500 Iu)] Docusate Sodium 4,100 mg PO BID 11/09/23 07/18/24 History Famotidine 10 mg PO HS 11/09/23 07/18/24 History Loratadine [Claritin] 10 mg PO DAILY 11/09/23 07/18/24 History Losartan [Cozaar] 50 mg PO DAILY 11/09/23 07/18/24 History cycloSPORINE 0.05% OPHTH SOLN 1 drop BOTH EYES BID 11/09/23 07/18/24 History [Restasis] oxyBUTYnin chloride [Ditropan] 1 tab PO DAILY 11/09/23 07/18/24 History polyethylene glycoL 3350 [Miralax] 527 mg PO DAILY 11/09/23 07/18/24 History
== END ==
LOC: 3 N SLEEP 14:59
PROVIDERS: ATTEND Internal Medicine
DX: G47.33 Obstructive sleep apnea (adult) (pediatric) (principal); T78.40XA Allergy, unspecified, initial encounter; I10 Essential (primary) hypertension; K21.9 Gastro-esophageal reflux disease without esophagitis; Z88.1 Allergy status to other antibiotic agents; Z88.8 Allergy status to other drugs, medicaments and biological substances
CPT/HCPCS: 99212